=== PATIENT | female | born 1975 | race Caucasian/White ===

== ENCOUNTER 2017-02-18 01:27 | Emergency (ER) | payer OTHER ==
[~2017-02-18] VITALS: Ht 160 cm; Wt 68.9 kg
[2017-02-18 02:00] LABS: HEMATOCRIT 43.3 % (36.0-46.0); MCH 30.4 PG (29.0-34.0); MCHC 34.2 G/DL (30.0-36.0); MCV 88.9 FL (83-99); MEAN PLAT.VOLUME 8.9 uM^3 (9.5-12.4); PLATELET COUNT 278 K/uL (156-360); RBC DIS.WIDTH-CV 12.3 % (11.8-14.6); RBC DIS.WIDTH-SD 40.1 % (39-53); RED BLOOD COUNT 4.87 M/uL (3.80-5.20); WHITE BLOOD COUNT 12.5 K/uL (4.1-10.2)
[2017-02-18 02:14] LABS: CHLORIDE 106 mEq/L (99-109); POTASSIUM 3.3 mEq/L (3.7-5.4); SODIUM 138 mEq/L (136-147)
[2017-02-18 02:15] LABS: GLUCOSE 152 mg/dL (70-99)
[2017-02-18 02:16] LABS: D-DIMER ELISA < 150.00 ng/mLDDU (<230)
[2017-02-18 02:17] LABS: ANION GAP 12 MEQ/L (2-14)
[2017-02-18 02:20] LABS: UREA NITROGEN (BUN) 15 mg/dL (9-23)
[2017-02-18 02:21] LABS: GFR ESTIMATE (CALCULATED) > 59 mL/min/
[2017-02-18 02:28] LABS: TROP-I INTERPRETATION NEGATIVE; TROPONIN-I < 0.01 ng/mL (0.0-0.30)
[2017-02-18 02:53] LABS: TOTAL BILIRUBIN 0.6 mg/dL (0.0-1.0)
[2017-02-18 02:54] LABS: ALKALINE PHOSPHATASE 61 IU/L (3-129)
[2017-02-18 02:56] LABS: DIRECT BILIRUBIN 0.2 mg/dL (0.0-0.3)
[2017-02-18 02:57] LABS: LIPASE 35 U/L (1.0-51.0)
[2017-02-18] MEDS ORDERED: PREDNISONE50 MG PO (03:00)
[2017-02-18] MEDS ORDERED: VENTOLIN HFA18 GM IH (03:00)
[2017-02-18 03:48] VITALS: BP 125/73
== END 2017-02-18 03:53 | disposition home or self-care (01) ==
LOC: EME 01:27
DX: J20.9 Acute bronchitis, unspecified (principal); R07.89 Other chest pain; R00.0 Tachycardia, unspecified; Z87.891 Personal history of nicotine dependence
CPT/HCPCS: 71020; 80048; 80076; 81003; 83690; 84443; 84484; 85027; 85379; 93005; 94640; 99281; 99284; J7512